=== PATIENT | female | born 1965 | race Two or more races ===

== ENCOUNTER 2016-09-25 04:30 | Emergency (ER) | payer OTHER ==
[~2016-09-25] VITALS: Ht 167.6 cm; Wt 56.7 kg
[2016-09-25] MEDS ORDERED: KETOROLAC TROMETHAMINE 30 MG INJ IM ONE (05:30)
[2016-09-25] MEDS ORDERED: KETOROLAC TROMETHAMINE 30 MG INJ ONE (05:31)
[2016-09-25] MEDS ORDERED: TRAMADOL 50MG TABLETS (05:34)
[2016-09-25] MEDS ORDERED: BUPROPION 150 MG (05:34)
[2016-09-25] MEDS ORDERED: DIAZEPAM 10 MG (05:34)
[2016-09-25] MEDS ORDERED: HYDROXYZINE HCL 25 MG (05:34)
[2016-09-25] MEDS ORDERED: IBUPROFEN 600 MG (05:34)
[2016-09-25] MEDS ORDERED: SULFAMETH (05:34)
[2016-09-25] MEDS ORDERED: CARISOPRODOL 350MG TABLETS (05:34)
[2016-09-25] MEDS ORDERED: TRIMETHOPRIM (05:34)
[2016-09-25] MEDS ORDERED: GABAPENTIN 300 MG (05:34)
[2016-09-25] MEDS ORDERED: DOK (05:34)
[2016-09-25] MEDS ORDERED: CEPHALEXIN 500MG CAPSULES (05:34)
--- NOTE | 2016-09-25 05:48 | NUR ---
DPatient discharged to home in stable conditon. Written and verbal after care instructions given. Patient verbalizes understanding of instructions.
[2016-09-25 05:53] VITALS: BP 115/70
== END 2016-09-25 05:48 | disposition home or self-care (01) ==
LOC: ER 04:41
DX: L01.00 Impetigo, unspecified (principal); M54.2 Cervicalgia; F31.9 Bipolar disorder, unspecified
CPT/HCPCS: 71010; 93005; A4663; J1885

== ENCOUNTER 2016-11-21 08:54 | Inpatient (IN) | payer OTHER ==
[~2016-11-21] VITALS: Ht 160 cm; Wt 59.0 kg
[~2016-11-21 08:54] MED LIST: BUPROPION 150 MG; CARISOPRODOL 350MG TABLETS; CEPHALEXIN 500MG CAPSULES; DIAZEPAM 10 MG; DOK; GABAPENTIN 300 MG; HYDROXYZINE HCL 25 MG; IBUPROFEN 600 MG; SULFAMETH; TRAMADOL 50MG TABLETS; TRIMETHOPRIM
--- NOTE | 2016-11-21 09:26 | NUR ---
dr veliz at the bedside for eval and exam.
--- NOTE | 2016-11-21 09:53 | NUR ---
PT STATES DOSE NOT WANT TO HAVE HEP LOCK AT THIS TIME. AWARE.
[2016-11-21] MEDS ORDERED: KETOROLAC TROMETHAMINE 60 MG INJ IM ONE ×2 (10:13→10:15)
[2016-11-21 10:15] LABS: BASOPHILS % (AUTO) 0.7 % (0.0-2.0); EOSINOPHILS % (AUTO) 0.9 % (0.0-7.0); HEMATOCRIT 40.7 % (37-47); HEMOGLOBIN 13.3 G/DL (12.0-16.0); LYMPHOCYTES # (AUTO) 1.2 K/UL (0.8-4.8); MEAN CORPUSCULAR HEMOGLOBIN 28.7 UUG (27.0-31.0); MEAN CORPUSCULAR HGB CONC 33 g/dL (32.0-37.0); MEAN CORPUSCULAR VOLUME 87.8 FL (81.0-99.0); MONOCYTES # (AUTO) 0.3 K/UL (0.1-1.30); MONOCYTES % (AUTO) 9.1 % (0.0-11.0); NEUTROPHILS # (AUTO) 1.3 K/UL (1.8-8.9); NEUTROPHILS % (AUTO) 45.3 % (38.5-71.5); PLATELET COUNT (AUTO) 178 K/UL (150-450); RED BLOOD CELL COUNT(AUTO) 4.63 MIL/UL (4.2-5.4); RED CELL DISTRIBUTION WIDTH 14.8 % (11.5-14.5); WHITE BLOOD COUNT (AUTO) 2.8 K/UL (4.0-11.2)
[2016-11-21 10:23] LABS: ALBUMIN 3.9 g/dL (3.4-5.0); BILIRUBIN,DIRECT 0.1 mg/dL (0.0-0.2); BILIRUBIN,TOTAL 0.3 mg/dL (0.2-1.0); CALCIUM 9.4 mg/dL (8.5-10.1); CREATININE 0.9 mg/dL (0.6-1.3); TOTAL PROTEIN, SERUM 7.1 g/dL (6.4-8.2)
--- NOTE | 2016-11-21 10:57 | NUR ---
pt left er for ct.
[2016-11-21 11:09] LABS: BAND % (MANUAL) 1 % (0-10); EOSINOPHILS % (MANUAL) 3 % (0-8); LYMPHOCYTES % (MANUAL) 39 % (20-40); MONOCYTES % (MANUAL) 8 % (2-10); NEUTROPHILS % (MANUAL) 49 % (42-75)
[2016-11-21 11:10] LABS: PLATELET ESTIMATE ADEQU
[2016-11-21 11:11] LABS: ANISOCYTOSIS 1+; OVALOCYTES 1+
[2016-11-21] MEDS ORDERED: TRAMADOL HCL 50 MG TABLET PO ONE (12:15)
[2016-11-21 12:17] LABS: *BILIRUBIN,URIN NEGATIVE (NEGATIVE); *BLOOD, URINE NEGATIVE (NEGATIVE); *CLARITY,URINE CLEAR (CLEAR); *COLOR,URINE YELLOW (YELLOW); *KETONES,URINE NEGATIVE (NEGATIVE); *PROTEIN,URINE NEGATIVE (NEGATIVE); *UROBILINOGEN,URINE 0.2 E.U./dl (NORMAL); LEUKOCYTE ESTERASE ,URINE NEGATIVE (NEGATIVE); NITRITE, URINE NEGATIVE (NEGATIVE); UGLUCOSE NEGATIVE (NEGATIVE)
[2016-11-21] MEDS ORDERED: TRAMADOL HCL 50 MG TABLET ONE (12:24)
[2016-11-21 12:46] LABS: BACTERIA,URINE FEW /HPF (NONE SEEN); RBC,URINE 0-3 /HPF (0-3); SQUAMOUS EPITHELIAL CELL,UR MODERATE /HPF (NONE SEEN); WBC,URINE 0-3 /HPF (0-3)
--- NOTE | 2016-11-21 13:58 | NUR ---
DOREEN COAT ROOM ATTENDANT AT THE BEDSIDE.
[2016-11-21] MEDS ORDERED: CYCLOBENZAPRINE HCL 10 MG TABLET PO PRN (14:15)
[2016-11-21] MEDS ORDERED: ACETAMINOPHEN 325 MG TABLET PO PRN (14:15)
[2016-11-21] MEDS ORDERED: MAGNESIUM HYDROXIDE 30 ML LIQUID UDC PO PRN (14:15)
[2016-11-21] MEDS ORDERED: ONDANSETRON 4 MG/2 ML VIAL IV PRN (14:15)
[2016-11-21] MEDS ORDERED: LORAZEPAM 0.5 MG TABLET PO PRN (14:30)
[2016-11-21] MEDS ORDERED: MAGNESIUM HYDROXIDE 30 ML LIQUID UDC PO ONE (15:00)
[2016-11-21] MEDS ORDERED: LEVOFLOXACIN 500 MG/D5W 500 MG in PREMIXED 1 EACH IV SCH (15:00)
[2016-11-21] MEDS: KETOROLAC TROMETHAMINE 15 MG INJ IVP PRN ×2 (15:15→22:11)
[2016-11-21] MEDS: DOCUSATE SODIUM 100 MG CAPSULE PO SCH (15:15)
[2016-11-21] MEDS: IV 1/2NS 1000 ML 1,000 ML IV PRN (15:16)
[2016-11-21 15:32] VITALS: BP 112/68
[2016-11-21] MEDS: ACYCLOVIR 400 MG TABLET PO SCH ×2 (15:45→22:10)
--- NOTE | 2016-11-21 15:55 | NUR ---
PT AMBULATORY FROM [facility]NEY TO BED, NO DIZZINESS, STEADY ON FEET. HOWEVER, PT COMPLAINING OF BLE NUMBNESS AND ALL OVER PAIN. ADMISSION PROTOCOL INITIATED, [employer], ACCOUNT GROUP SUPERVISOR AWARE OF PTS ARRIVAL, SAW PT AND ORDERS PLACED. INSTRUCTED PT TO USE CALL LIGHT WHEN BATHROOM NEED ARISES, BED ALARM ON, WILL CONTINUE TO MONITOR.
[2016-11-21] MEDS: GABAPENTIN 300 MG CAPSULE PO SCH (16:51)
--- NOTE | 2016-11-21 16:53 | NUR ---
PT DOES NOT WANT TO TAKE ACYCLOVIR AT THIS TIME, PT STATED ALREADY HAD IT TWICE TODAY
[2016-11-21] MEDS: LIDOCAINE 5% PATCH TD SCH (19:20)
[2016-11-21 20:00] VITALS: BP 93/47
--- NOTE | 2016-11-21 20:00 | NUR ---
patient received resting comfortably in bed AOx4, no acute distress noted. Pt reports generalized pain but refuses pain medication at this time. IV fluids running in left AC, intact and patent. Bed in low and locked position. Safety measures provided.
[2016-11-21] MEDS: NYSTATIN SUSPENSION 5 ML LIQUID UDC PO SCH (22:10)
--- NOTE | 2016-11-21 22:30 | NUR ---
Patient compliant with bedtime medications. Received toradol IV as ordered for generalized pain. No acute distress noted.
[2016-11-22] MEDS: LORAZEPAM 1 MG TABLET PO PRN ×3 (01:11→21:22)
--- NOTE | 2016-11-22 01:33 | NUR ---
Patient awake and requesting ativan for anxiety. Iv fluids running in left AC, intact and patent. Will continue to monitor for safety.
--- NOTE | 2016-11-22 04:33 | NUR ---
Patient IV in left Ac infiltrated. IV fluids stopped and hep lock removed and cold compress applied to site. Pt stating "I do not want to be poked right now" despite education. No acute distress noted. will continue to monitor for safety.
--- NOTE | 2016-11-22 05:01 | NUR ---
Patient c/o itchiness "all over", MD was paged, awaiting call back from MD at this time.
[2016-11-22] MEDS: ACYCLOVIR 400 MG TABLET PO SCH ×3 (06:38→21:12)
[2016-11-22] MEDS: PANTOPRAZOLE SODIUM 40 MG TABLET.DR PO SCH (06:38)
[2016-11-22 06:55] LABS: BASOPHILS % (AUTO) 0.5 % (0.0-2.0); EOSINOPHILS # (AUTO) 0.1 K/uL (0.0-0.7); EOSINOPHILS % (AUTO) 1.5 % (0.0-7.0); HEMATOCRIT 39.5 % (37-47); HEMOGLOBIN 13.1 G/DL (12.0-16.0); LYMPHOCYTES # (AUTO) 1.6 K/UL (0.8-4.8); LYMPHOCYTES % (AUTO) 42.4 % (20.5-51.5); MEAN CORPUSCULAR HEMOGLOBIN 29.4 UUG (27.0-31.0); MEAN CORPUSCULAR HGB CONC 33 g/dL (32.0-37.0); MEAN CORPUSCULAR VOLUME 88.4 FL (81.0-99.0); MONOCYTES # (AUTO) 0.3 K/UL (0.1-1.30); MONOCYTES % (AUTO) 7.3 % (0.0-11.0); NEUTROPHILS # (AUTO) 1.8 K/UL (1.8-8.9); NEUTROPHILS % (AUTO) 48.3 % (38.5-71.5); PLATELET COUNT (AUTO) 162 K/UL (150-450); RED BLOOD CELL COUNT(AUTO) 4.47 MIL/UL (4.2-5.4); RED CELL DISTRIBUTION WIDTH 14.7 % (11.5-14.5); WHITE BLOOD COUNT (AUTO) 3.8 K/UL (4.0-11.2)
[2016-11-22 07:04] LABS: THYROID STIMULATING HORMONE 0.794 mIU/mL (0.358-3.740)
[2016-11-22 07:14] LABS: ALBUMIN 3.4 g/dL (3.4-5.0); BILIRUBIN,TOTAL 0.2 mg/dL (0.2-1.0); CALCIUM 9.1 mg/dL (8.5-10.1); MAGNESIUM 1.9 mg/dL (1.8-2.4); PHOSPHOROUS 3.5 mg/dL (2.5-4.9); POTASSIUM 4.2 mmol/L (3.5-5.1); TOTAL PROTEIN, SERUM 6.4 g/dL (6.4-8.2)
--- NOTE | 2016-11-22 08:00 | NUR ---
RECEIVED PATIENT AWAKE ALERT AND ORIENTED DENIES PAIN OR DISCOMFORTS AT THIS TIME.PATIENT STILL DOES NOT HAVE IV SITE STATED NOT READY AT THIS TIME.ENCOURAGED TO DRINK MUCH SHE CAN AND WILL CONTINUE TO OBSERVE.
[2016-11-22 08:28] LABS: FOLIC ACID 17.1 NG/ML (8.6-58.9)
[2016-11-22] MEDS: buPROPion XL 150 MG TAB.SR.24H PO SCH (08:45)
[2016-11-22] MEDS: NYSTATIN SUSPENSION 5 ML LIQUID UDC PO SCH ×4 (08:45→21:12)
[2016-11-22] MEDS: GABAPENTIN 300 MG CAPSULE PO SCH ×3 (08:45→16:55)
[2016-11-22] MEDS: DOCUSATE SODIUM 100 MG CAPSULE PO SCH (08:45)
[2016-11-22] MEDS: LIDOCAINE 5% PATCH TD SCH (08:48)
--- NOTE | 2016-11-22 08:55 | NUR ---
DUE MEDICATIONS GIVEN SPOKE WITH PATIENT AGAIN RE HAVING IV FLUIDS ORDERED AND SHE STATED TO GIVE HER ATIVAN TO RELAX AND MAY BE IN ABOUT HALF AN HOUR SHE WILL ALLOW ME TO REINSERT THE HEPLOCK.ATIVAN GIVEN ORDERED AT THIS TIME.
--- NOTE | 2016-11-22 10:00 | NUR ---
HEPLOCK INSERTED TO HER RIGHT HAND AND IVF CONTINUED ORDERED.
--- NOTE | 2016-11-22 10:30 | NUR ---
PATIENT IS COMPLAINING OF PAIN AND STATED THAT THE TORADOL DOES NOT HELP HER MUCH,DR DUMONT IS HERE SPOKE WITH HIM AND HE STATED TO CALL DR BRYANT FOR ORDERS SO I CALLED DR BRYANT AND LEFT A MESSAGE WITH CHRISTOPHER SANTANA IS NOT IN THE OFICE AT THE MOMENT WILL RELAY THE MESSAGE.
--- NOTE | 2016-11-22 10:45 | NUR ---
DR BRYANT RETURNED CALL AND STATED TO CALL DR DUMONT FOR ORDERS SO CALLED AND NOTIFIED DR JUAREZ WITH ORDERS.
[2016-11-22 10:52] VITALS: BP 90/59
--- NOTE | 2016-11-22 11:15 | NUR ---
PATIENT HAS A CODEINE ALLERGY STATED THAT SHE VOMITED WITH CODEINE SO MANY YEARS AGO AND HAS SINCE TAKEN MORPHINE WITH NO ADVERSE REACTIONS DR DUMONT AWARE AND STATED TO GIVE THE PATIENT LOW DOSE OF MORPHINE TO START.
[2016-11-22] MEDS: MORPHINE SULFATE 2 MG/1 ML DISP.SYRIN IV PRN ×3 (11:18→20:47)
[2016-11-22] MEDS: IV 1/2NS 1000 ML 1,000 ML IV PRN (12:41)
[2016-11-22] MEDS ORDERED: BISACODYL 10 MG SUPP.RECT RC PRN (13:15)
[2016-11-22] MEDS ORDERED: MAGNESIUM HYDROXIDE 30 ML LIQUID UDC PO PRN (13:19)
[2016-11-22] MEDS: diphenhydrAMINE 50 MG CAPSULE PO PRN ×2 (13:32→21:27)
[2016-11-22 16:17] VITALS: BP 95/59
--- NOTE | 2016-11-22 17:00 | NUR ---
PATIENT STATED FELS CONSTIPATED AND REQUESTED FOR LAXATIVES PRUNE JUICE GIVEN AND MILK OF MAGNESIA GIVEN ORDERED AND WILL OBSERVE.
--- NOTE | 2016-11-22 20:00 | NUR ---
AWAKE,ALERT,COMPLAINING OF ABDOMINAL PAIN,MORPHINE IV GIVEN,ATIVAN REQUESTED AND BENADRYL.,SNACKS GIVEN RESTING COMFORTABLY.
[2016-11-22 20:23] VITALS: BP 105/63
[2016-11-23] MEDS: IV 1/2NS 1000 ML 1,000 ML IV PRN ×2 (01:18→11:06)
[2016-11-23 04:38] VITALS: BP 89/54
[2016-11-23] MEDS: PANTOPRAZOLE SODIUM 40 MG TABLET.DR PO SCH (06:19)
[2016-11-23] MEDS: ACYCLOVIR 400 MG TABLET PO SCH ×2 (06:19→13:33)
[2016-11-23 06:25] LABS: CALCIUM 8.8 mg/dL (8.5-10.1); CREATININE 0.9 mg/dL (0.6-1.3); POTASSIUM 4.5 mmol/L (3.5-5.1)
[2016-11-23 06:33] LABS: BASOPHILS # (AUTO) 0.2 K/uL (0.0-8.0); BASOPHILS % (AUTO) 4.4 % (0.0-2.0); EOSINOPHILS # (AUTO) 0.1 K/uL (0.0-0.7); EOSINOPHILS % (AUTO) 1.7 % (0.0-7.0); HEMATOCRIT 37.6 % (37-47); HEMOGLOBIN 12.9 G/DL (12.0-16.0); LYMPHOCYTES # (AUTO) 1.8 K/UL (0.8-4.8); LYMPHOCYTES % (AUTO) 50.3 % (20.5-51.5); MEAN CORPUSCULAR HEMOGLOBIN 30.4 UUG (27.0-31.0); MEAN CORPUSCULAR HGB CONC 34 g/dL (32.0-37.0); MEAN CORPUSCULAR VOLUME 88.3 FL (81.0-99.0); MONOCYTES # (AUTO) 0.3 K/UL (0.1-1.30); MONOCYTES % (AUTO) 9.4 % (0.0-11.0); NEUTROPHILS # (AUTO) 1.3 K/UL (1.8-8.9); NEUTROPHILS % (AUTO) 34.2 % (38.5-71.5); PLATELET COUNT (AUTO) 150 K/UL (150-450); RED BLOOD CELL COUNT(AUTO) 4.26 MIL/UL (4.2-5.4); RED CELL DISTRIBUTION WIDTH 14.6 % (11.5-14.5); WHITE BLOOD COUNT (AUTO) 3.7 K/UL (4.0-11.2)
[2016-11-23] MEDS: MORPHINE SULFATE 2 MG/1 ML DISP.SYRIN IV PRN (06:41)
--- NOTE | 2016-11-23 07:30 | NUR ---
pt received in bed awake.no c/o pain noted,breakfast served.assessment done.
--- NOTE | 2016-11-23 07:38 | NUR ---
NO BM YET,DULCOLAX SUPPOSITORY GIVEN. WARM PRUNE JUICE AND COFFEE GIVEN.
[2016-11-23] MEDS: DOCUSATE SODIUM 100 MG CAPSULE PO SCH (08:00)
[2016-11-23] MEDS: buPROPion XL 150 MG TAB.SR.24H PO SCH (08:00)
[2016-11-23] MEDS: LIDOCAINE 5% PATCH TD SCH (08:00)
[2016-11-23] MEDS: GABAPENTIN 300 MG CAPSULE PO SCH ×2 (08:00→12:23)
[2016-11-23] MEDS: NYSTATIN SUSPENSION 5 ML LIQUID UDC PO SCH ×2 (08:00→12:23)
[2016-11-23 11:14] VITALS: BP 96/51
[2016-11-23] MEDS ORDERED: GABA100C PO (13:03)
--- NOTE | 2016-11-23 14:00 | NUR ---
d/c orders received noted and carried out.d/c instructions and educations given to the pt.d/c heplock per md orders,pt left the facility via private car in stable condition.
[2016-11-25 17:06] LABS: *VITAMIN D 25-OH VIT D 26 ng/mL (.); *VITAMIN D 25-OH, D2 <1.0 ng/mL (.); *VITAMIN D 25-OH, D3 25 ng/mL (.)
== END 2016-11-23 14:00 | disposition home or self-care (01) | DRG 756 ==
LOC: ER 08:54 → MED 14:27
PROVIDERS: ADMIT Internal Medicine; ATTEND Internal Medicine
DX: F41.9 Anxiety disorder, unspecified (principal); B37.0 Candidal stomatitis; F32.9 Major depressive disorder, single episode, unspecified; M48.02 Spinal stenosis, cervical region; R53.1 Weakness; Z83.3 Family history of diabetes mellitus; K59.00 Constipation, unspecified; G89.29 Other chronic pain; E04.2 Nontoxic multinodular goiter; D72.819 Decreased white blood cell count, unspecified; F17.210 Nicotine dependence, cigarettes, uncomplicated; R73.9 Hyperglycemia, unspecified; R10.9 Unspecified abdominal pain; R93.8 Abnormal findings on diagnostic imaging of other specified body structures; M54.12 Radiculopathy, cervical region
CPT/HCPCS: 36415; 70030-TC; 71010; 72125; 72131; 82746; 83605; 83690; 83735; 84100; 84443; 85025; 85651; 85730; 87040; 87086; 93005; 97001; A4663; J1885; J1956; J2270; J3490; Q0163

== ENCOUNTER 2017-09-14 09:09 | Emergency (ER) | payer OTHER ==
[~2017-09-14] VITALS: Ht 165.1 cm; Wt 58.1 kg
[~2017-09-14 09:09] MED LIST changes: -CARISOPRODOL 350MG TABLETS; -CEPHALEXIN 500MG CAPSULES; -DIAZEPAM 10 MG; -DOK; +GABA100C PO; -GABAPENTIN 300 MG; -HYDROXYZINE HCL 25 MG; -IBUPROFEN 600 MG; -SULFAMETH; -TRAMADOL 50MG TABLETS; -TRIMETHOPRIM
[2017-09-14] MEDS ORDERED: MORPHINE SULFATE 4 MG/1 ML DISP.SYRIN ONE (09:43)
[2017-09-14] MEDS ORDERED: ONDANSETRON 4 MG/2 ML VIAL ONE (09:43)
[2017-09-14] MEDS: MORPHINE SULFATE 4 MG/1 ML DISP.SYRIN IM ONE (09:45)
[2017-09-14] MEDS: ONDANSETRON 4 MG/2 ML VIAL IM ONE (09:45)
--- NOTE | 2017-09-14 09:50 | NUR ---
Patient discharged to home in stable conditon. Written and verbal after care instructions given. Patient verbalizes understanding of instructions.rx 3 given, pt got dressed and ambulated w/o diff, pt took all belongings.
[2017-09-14 10:04] VITALS: BP 104/68
== END 2017-09-14 10:05 | disposition home or self-care (01) ==
LOC: ER 09:09
DX: M54.12 Radiculopathy, cervical region (principal); J20.9 Acute bronchitis, unspecified; B34.9 Viral infection, unspecified; G89.29 Other chronic pain; Z88.5 Allergy status to narcotic agent; Z79.899 Other long term (current) drug therapy
CPT/HCPCS: A4663; J2270; J2405

== ENCOUNTER 2017-09-15 08:05 | Emergency (ER) | payer OTHER ==
[~2017-09-15] VITALS: Ht 167.6 cm; Wt 58.1 kg
[2017-09-15 08:40] LABS: *BLOOD, URINE NEGATIVE (NEGATIVE); *CLARITY,URINE CLEAR (CLEAR); *COLOR,URINE YELLOW (YELLOW); *KETONES,URINE TRACE (NEGATIVE); *PROTEIN,URINE TRACE (NEGATIVE); *UROBILINOGEN,URINE 0.2 E.U./dl (NORMAL); LEUKOCYTE ESTERASE ,URINE 1+ (NEGATIVE); NITRITE, URINE NEGATIVE (NEGATIVE); PH,URINE 5.5 (5.0-8.0); UGLUCOSE NEGATIVE (NEGATIVE)
[2017-09-15 08:55] LABS: *BILIRUBIN,URIN 1+ (NEGATIVE)
[2017-09-15] MEDS ORDERED: KETOROLAC TROMETHAMINE 30 MG INJ ONE (09:07)
[2017-09-15] MEDS ORDERED: KETOROLAC TROMETHAMINE 30 MG INJ IM ONE (09:15)
[2017-09-15 09:17] LABS: BACTERIA,URINE FEW /HPF (NONE SEEN); MUCUS,URINE FEW /LPF (0-FEW); SQUAMOUS EPITHELIAL CELL,UR MODERATE /HPF (NONE SEEN)
[2017-09-15] MEDS ORDERED: HYDROCODONE/APAP 5-325MG TABLET ONE (09:35)
--- NOTE | 2017-09-15 09:36 | NUR ---
Patient discharged to home in stable conditon. Written and verbal after care instructions given. Patient verbalizes understanding of instructions.PT WALKS IN STEADY GAIT. PT NOT DRIVNG. DAUGHTER IS.
[2017-09-15] MEDS ORDERED: HYDROCODONE/APAP 5-325MG TABLET PO ONE (09:45)
== END 2017-09-15 09:37 | disposition home or self-care (01) ==
LOC: ER 08:05
DX: J20.9 Acute bronchitis, unspecified (principal); B34.9 Viral infection, unspecified; N39.0 Urinary tract infection, site not specified; Z88.5 Allergy status to narcotic agent; Z79.899 Other long term (current) drug therapy
CPT/HCPCS: 87086; A4663; J1885

== ENCOUNTER 2018-11-16 17:16 | Emergency (ER) | payer OTHER ==
[~2018-11-16] VITALS: Ht 167.6 cm; Wt 59.0 kg
--- NOTE | 2018-11-16 17:24 | NUR ---
KOREY SANTANA AT BEDSIDE FOR MSE.
[2018-11-16] MEDS ORDERED: MORPHINE SULFATE 4 MG/1 ML DISP.SYRIN ONE (17:38)
[2018-11-16] MEDS ORDERED: MORPHINE SULFATE 4 MG/1 ML DISP.SYRIN IM ONE (17:45)
[2018-11-16 17:47] LABS: BASOPHILS % (AUTO) 0.5 % (0.0-2.0); EOSINOPHILS % (AUTO) 0.1 % (0.0-7.0); HEMOGLOBIN 12.8 g/dL (10.9-14.3); LYMPHOCYTES # (AUTO) 0.9 K/uL (20.0-40.0); LYMPHOCYTES % (AUTO) 15.3 % (20.5-51.5); MEAN CORPUSCULAR HEMOGLOBIN 30.4 uug (24.7-32.8); MEAN CORPUSCULAR HGB CONC 33 g/dL (32.3-35.6); MEAN CORPUSCULAR VOLUME 92.8 fL (75.5-95.3); MONOCYTES # (AUTO) 0.4 K/uL (2.0-10.0); MONOCYTES % (AUTO) 7.1 % (0.0-11.0); NEUTROPHILS # (AUTO) 4.4 K/uL (1.8-8.9); PLATELET COUNT (AUTO) 269 K/uL (179-408); RED BLOOD CELL COUNT(AUTO) 4.21 MIL/uL (3.63-4.92); WHITE BLOOD COUNT (AUTO) 5.8 K/uL (3.8-11.8)
[2018-11-16 17:54] LABS: CREATININE 0.7 mg/dL (0.6-1.3); POTASSIUM 3.8 mmol/L (3.5-5.1)
--- NOTE | 2018-11-16 17:57 | NUR ---
KOREY SANTANA AT BEDSIDE FOR PT UPDATE.
[2018-11-16] MEDS ORDERED: CEFTRIAXONE 1 G VIAL ONE (18:14)
[2018-11-16] MEDS ORDERED: LIDOCAINE HCL 1% 20 ML VIAL ONE (18:14)
[2018-11-16] MEDS ORDERED: CEFTRIAXONE 1 G VIAL IM ONE (18:15)
--- NOTE | 2018-11-16 18:39 | NUR ---
Patient discharged to home in stable conditon. Written and verbal after care instructions given. Patient verbalizes understanding of instructions. ALL BELONGINGS W/ PT. PT SELF-AMBULATED W/O DIFFICULTY. PT WILL BE DRIVEN HOME BY DAUGHTER IN PRIVATE VEHICLE.
[2018-11-16 18:40] VITALS: BP 131/76
== END 2018-11-16 18:43 | disposition home or self-care (01) ==
LOC: ER 17:16
DX: L03.116 Cellulitis of left lower limb (principal); M54.9 Dorsalgia, unspecified; Z88.5 Allergy status to narcotic agent; Z79.899 Other long term (current) drug therapy
CPT/HCPCS: 36415; 80048; 85025; 87040 ×2; 96372 ×2; 99283; J0696; J2270; J3490; A4663